=== PATIENT | male | born 2000 | race African-American/Black ===

== ENCOUNTER 2018-08-29 21:01 | Emergency (ER) | payer BC ==
[~2018-08-29] VITALS: Ht 177.8 cm; Wt 122.5 kg
[2018-08-29 21:21] VITALS: BP 172/99
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
--- NOTE | 2018-08-29 21:51 | RAD ---
CT scan of the cervical spine without contrast 08/29/2018 Clinical history: Neck pain. Technique: Unenhanced, contiguous, 0.625 mm axial sections were obtained through the cervical spine. Axial, coronal and sagittal reconstructed images were obtained. One or more of the following individualized dose reduction techniques were utilized for this study: 1. Automated exposure control. 2. Adjustment of the mA and/or kV according to patient size. 3. Use of iterative reconstruction technique. Findings: Sagittal and coronal reconstructed images demonstrate slight reversal of the normal cervical lordosis. No fracture or subluxation of the cervical vertebrae is seen. No significant degenerative changes are noted. No area of significant central spinal canal or neural foraminal stenosis is seen. Impression: No fracture or subluxation of the cervical vertebra is identified. Electronically signed by: Junior Corona MD (08/29/2018 9:48 PM) [facility]
[2018-08-29] MEDS ORDERED: CYCL10TA2 PO (22:52)
== END 2018-08-29 23:10 | disposition home or self-care (01) ==
LOC: ER 21:55
DX: M62.830 Muscle spasm of back (principal); M54.2 Cervicalgia; I10 Essential (primary) hypertension
CPT/HCPCS: 72125; 99284

== ENCOUNTER 2019-10-29 22:11 | Emergency (ER) | payer BC ==
[~2019-10-29] VITALS: Ht 182.9 cm; Wt 127.0 kg
[~2019-10-29 22:11] MED LIST: CYCL10TA2 PO
--- NOTE | 2019-10-29 22:39 | PHYS DOC ---
Past Medical History Past Medical History: Hypertension, Other Additional Past Medical Histor: SCOLIOSIS Past Surgical History: No Surgical History Smoking Status: Never Smoker Alcohol Use: None Drug Use: None General Adult EDM: Chief Complaint: NEURO SYMPTOMS/DEFICITS HPI: HPI: Patient is a 18 year old male who presents emergency department numbness and tingling of his upper extremities and face. He states it is bilateral at times but mainly in his right upper extremity. He states his been going on intermittently for 3 to 4 days. He also states he was having imbalance and had 2 falls yesterday. He states he fell to the right side. He currently is able to ambulate without falling. He states it was not a vertigo-like symptom but rather more dizziness. He denies chest pain. He states he had a headache but he took aspirin this improved. He has a family history of hypertension but has never been placed on medications himself. Review of Systems: Review of Systems: Constitutional: Denies fever or chills. [] Eyes: Denies change in visual acuity. [] HENT: Denies nasal congestion or sore throat. [] Respiratory: Denies cough or shortness of breath. [] Cardiovascular: Denies chest pain or edema. [] GI: Denies abdominal pain, nausea, vomiting, bloody stools or diarrhea. [] : Denies dysuria. [] Musculoskeletal: Denies back pain or joint pain. [] Integument: Denies rash. [] Neurologic: Denies headache, focal weakness or sensory changes. Endocrine: Denies polyuria or polydipsia. [] Lymphatic: Denies swollen glands. [] Psychiatric: Denies depression or anxiety. [] Heart Score: Risk Factors: Risk Factors: DM, Current or recent (<one month) smoker, HTN, HLP, family history of CAD, obesity. Risk Scores: Score 0 - 3: 2.5% MACE over next 6 weeks - Discharge Home Score 4 - 6: 20.3% MACE over next 6 weeks - Admit for Clinical Observation Score 7 - 10: 72.7% MACE over next 6 weeks - Early Invasive Strategies Allergies: Allergies: Allergies Coded Allergies Type Severity Reaction Last Updated Verified No Known Drug Allergies 08/29/18 No Physical Exam: PE: Constitutional: Well developed, well nourished, no acute distress, non-toxic appearance. [] HENT: Normocephalic, atraumatic, bilateral external ears normal, oropharynx moist, no oral exudates, nose normal. [] Eyes: PERRLA, EOMI, conjunctiva normal, no discharge. [] Neck: Normal range of motion, no tenderness, supple, no stridor. [] Cardiovascular:Heart rate regular rhythm, no murmur [] Lungs & Thorax: Bilateral breath sounds clear to auscultation [] Abdomen: Bowel sounds normal, soft, no tenderness, no masses, no pulsatile masses. [] Skin: Warm, dry, no erythema, no rash. [] Back: No tenderness, no CVA tenderness. [] Extremities: No tenderness, no cyanosis, no clubbing, ROM intact, no edema. [] Neurologic: Alert and oriented X 3, normal motor function, normal sensory function, no focal deficits noted. CN II -XII intact [] Psychologic: Affect normal, judgement normal, mood normal. [] EKG: EKG: [] Radiology/Procedures: Radiology/Procedures: [] Course & Med Decision Making: Course & Med Decision Making Pertinent Labs and Imaging studies reviewed. (See chart for details) Patient with unilateral numbness and tingling. Possibly brain mass. The dizziness and unsteadiness on his feet is also confounding. We will get a CT of the patient. The patient CT and labs were normal. I suspect he is under a great deal of stress from his new baby and his is going through depression. We discussed trying to get good sleep as well as exercise and eating healthy. I discussed this with his father as well. If he continues to have any symptoms for the next several weeks he will follow-up with his primary care with his family. Parris Disclaimer: Parris Disclaimer: This electronic medical record was generated, in whole or in part, using a voice recognition dictation system. Departure Departure Impression: Primary Impression: Paresthesia Disposition: 01 HOME, SELF-CARE Condition: GOOD Referrals: NO PCP (PCP) ANOOP MOSLEY MD Patient Instructions: Paresthesia, [id number] Justicifation of Admission Dx: Justifications for Admission: Justification of Admission Dx: N/A DARIN CARDENAS DO Oct 29, 2019 22:39
[2019-10-29 22:49] LABS: CALCIUM 9.3 mg/dL (8.5-10.1); GFR 115.3; POTASSIUM 4.5 mmol/L (3.5-5.1)
[2019-10-29 22:55] LABS: ALBUMIN 4.2 g/dL (3.4-5.0); ALBUMIN/GLOBULIN RATIO 1.1 (1.0-1.7); MAGNESIUM 1.8 mg/dL (1.8-2.4); TOTAL BILIRUBIN 0.6 mg/dL (0.2-1.0)
--- NOTE | 2019-10-29 23:19 | RAD ---
Exam: CT head INDICATION: Numbness TECHNIQUE: Sequential axial images through the head were obtained without the administration of IV contrast. Comparisons: None FINDINGS: No focal parenchymal lesion or hemorrhage is identified. There is no midline shift or sulcal effacement. No acute vascular territory infarction is identified. Rios-white distinction is preserved. The ventricular system is within normal limits without compression hydrocephalus. The basal cisterns are well maintained. The visualized portions of the paranasal sinuses and mastoid air cells are well-pneumatized. No acute fractures. IMPRESSION: No acute intracranial abnormality. Exposure: One or more of the following in the visualized dose reduction techniques were utilized for this examination: 1. Automated exposure control 2. Adjustment of the MA and/or KV according to patient size Use of iterative of reconstructive technique Electronically signed by: Melissa Abdi MD (10/29/2019 11:16 PM) [id number]
[2019-10-29 23:57] VITALS: BP 145/77
== END 2019-10-30 00:02 | disposition home or self-care (01) ==
LOC: ER 22:11
DX: R20.2 Paresthesia of skin (principal); R51 Headache; I10 Essential (primary) hypertension; M41.9 Scoliosis, unspecified
CPT/HCPCS: 36415; 70450; 80053; 83735; 99284

== ENCOUNTER → 2020-01-25 | Outpatient (CLI) | payer BC ==
--- NOTE | 2020-01-25 12:10 | RAD ---
MR#: [id number] Date of Study: 01/25/2020 Ordering Physician: ANOOP MOSLEY, Referring Physician: MILDRED DAWSON Tech: APPROVED REPORT Test Type: Exercise Stress Nurse/Tech: Justyna Hobbs R.N. Test Indications: HTN Cardiac History: Family history, Hypertension Medications: See Electronic Medical Record Medical History: See Electronic Medical Record Resting EC NSR Resting Heart Rate: 96 bpm Resting Blood Pressure: 149/92mmHg Pretest Chest Pain: None Nurse/Tech Notes S1S2, lungs sound clear Consent: The procedure was explained to the patient in lay terms. Informed consent was witnessed. Humberto savannahut was entered into [employer]. History and Stress Test performed by Justyna Hobbs R.N. POST EXERCISE Reason for Termination: Reached target heart rate Target HR: 169 Max HR: 189 bpm Exercise duration: 8 min. min:sec, 3 Stage Max Blood Pressure: 170/98mmHg Blood Pressure response to exercise: Normal blood pressure response during stress. Chest Pain: No. Arrhythmia: No. ST Change: No. INTERPRETATION Stress EKG Conclusion: No evidence of stress induced EKG changes. Conclusion 1. Treadmill EKG stress test only 2. Normal baseline EKG 3. Good exercise capacity with 10.0 metabolic equivalents reached. 4. Normal stress EKG without any evidence of ischemia 5. Normal blood pressure and heart rate response. 6. Overall low risk study. Signed by : Jase Campos, Electronically Approved : 01/25/2020 12:09:38
== END ==
LOC: NM 10:55
PROVIDERS: ATTEND Internal Medicine
DX: R07.89 Other chest pain (principal)
CPT/HCPCS: 93017